=== PATIENT | male | born 1950 | race Caucasian/White ===

== ENCOUNTER → 2024-01-04 14:49 | Outpatient (REF) | payer MEDICARE, SELFPAY | LOC: HWRAD 14:49 | PROVIDERS: ATTENDING PHYSICIAN Specialist; FAMILY PHYSICIAN Internal Medicine | DX: R60.0 Localized edema (principal) | CPT/HCPCS: 93970 ==

== ENCOUNTER 2025-03-05 08:17 | Emergency (ER) | payer MEDICARE, SELFPAY ==
[2025-03-05 08:19] VITALS: BP 166/91
[2025-03-05 08:26] VITALS: BP 165/77
[2025-03-05 08:37] VITALS: BP 165/77; BMI 38.0
--- NOTE | 2025-03-05 08:50 | ED.GENMED ---
History of Present Illness
General
Chief Complaint: Nose Bleed
Time Seen by Provider: 03/05/25 08:26
History of Present Illness
History of Present Illness:
74-year-old male presents to the emergency department for evaluation of intermittent nosebleeds for the past 1 to 2 weeks. Began with bleeding on the left nare this morning however it is controlled with direct pressure. Not on blood thinners.
Past History
Past History
ED Past Medical History: HTN, Renal failure (Chronic kidney disease stage III) and Other (Kamar's granulomatosis, BPH); Negative IDDM, NIDDM or CO
ED Past Surgical History: Other (Hernia repair)
Social History
Tobacco: Non-smoker
Alcohol: None
Drug: None
Personal:
Living: with family
Employment: Employed
Family History
Family History: Hypertension
Review of Systems
Review of Systems
Allergies reviewed?: Yes
All Other Systems: ROS reviewed and negative except as documented in HPI and ROS
Phy Exam
Physical Exam
Physical Exam:
GEN: Well appearing, NAD, WDWN
HEENT: Oral mucosa moist, no scleral icterus. No active epistaxis, evidence of recent bleeding to the left anterior nare/septum
Cardiac: Regular rate
Lung: No respiratory distress, no tachypnea
MSK: No gross deformity or injuries
Skin: Good color, no pallor or jaundice, no rashes
Neuro: AO x3, moves all extremities freely
Psych: Calm, cooperative
Course
Vital Signs
Initial and Last Documented VS:
Initial Vital Signs
Temp Pulse Resp BP Pulse Ox
97.6 F 94 16 166/91 96
03/05/25 08:19 03/05/25 08:19 03/05/25 08:19 03/05/25 08:19 03/05/25 08:19
Last Documented Vital Signs
Temp Pulse Resp BP Pulse Ox
98.5 F 83 20 165/77 96
03/05/25 08:37 03/05/25 08:37 03/05/25 08:37 03/05/25 08:37 03/05/25 08:50
Procedures
Nosebleed
Drug treatment: Lidocaine
Treatment: Silver nitrate cautery
Post treatment bleeding: none- good control
MDM/Problems Addressed
MDM/Problems Addressed:
Silver nitrate cautery performed after hemostasis for definitive treatment with no evidence for breakthrough bleeding, discharged stable condition
*Pulse Oximetry
SaO2: 96
Oxygen Mode of Delivery: Room air
Patient hypoxic: no
*Critical Care Note
Total Time (30-74mins, 75-104mins- exclusive of procedures): Not Applicable
ED Attending Note
-
Portions of this chart may have been created with voice recognition software.� Occasional wrong word or��sound alike� substitutions may have occurred due to the inherent limitations of voice recognition software.
Discharge Plan
Departure
Patient Disposition: Home (Routine Discharge)
Date of Disposition: 03/05/25
Time of Disposition: 09:23
Patient with high blood pressure during this ER visit?: No
Discharge Problem:
Epistaxis
Instructions: Nosebleeds (DC)
Prescriptions:
No Action
losartan 50 MG tablet
100 mg PO DAILY
amlodipine 5 MG tablet
5 mg PO BID
hydrochlorothiazide 12.5 MG tablet
25 mg PO DAILY
multivitamin with folic acid [Tab-A-Antoinette] 1 TABLET tablet
1 tab PO DAILY
finasteride 5 mg Tablet
5 mg PO DAILY
Jardiance 10 mg Tablet
10 mg PO DAILY
Referrals:
Shayna Mitchell MD [Family Provider, Internal Medicine]
Ericka Askew MD [Active, Otology] - As needed
Interventions
Interventions:
*Risk Screen - Suicide Last Done: 03/05/25 08:19
*General Assessment Last Done: 03/05/25 08:37
*Neglect/Abuse Screening Last Done: 03/05/25 08:19
*ED- Fall Risk Assessment Last Done: 03/05/25 08:37
*ED COVID-19 Vaccine History Last Done: 03/05/25 08:37
*Nursing Disposition Last Done: 03/05/25 09:35
ED-EENT Assessment Last Done: 03/05/25 08:37
Discharge Date and Time
Discharge Date/Time: 03/05/25 09:36
Print Language: POLISH
== END 2025-03-05 09:36 | disposition home or self-care (01) ==
LOC: EMR 08:17
PROVIDERS: EMERGENCY PHYSICIAN Emergency Medicine; FAMILY PHYSICIAN Internal Medicine
DX: R04.0 Epistaxis (principal); I12.9 Hypertensive chronic kidney disease with stage 1 through stage 4 chronic kidney disease, or unspecified chronic kidney disease; N18.30 Chronic kidney disease, stage 3 unspecified; M31.31 Wegener's granulomatosis with renal involvement; N40.0 Benign prostatic hyperplasia without lower urinary tract symptoms; Z88.6 Allergy status to analgesic agent
CPT/HCPCS: 99283; 30901